=== PATIENT | male | born 1980 | race American Indian/Alaskan Native ===

== ENCOUNTER 2016-10-17 22:53 | Emergency (ER) | payer MEDICAID ==
[2016-10-17 23:58] LABS: Basophils % (Auto) 0.6 % (0.0-1.8); Eosinophils % (Auto) 3.2 % (0.0-4.3); Hematocrit 38.2 % (35.5-45.6); Hemoglobin 12.4 gm/dl (11.8-15.2); Mean Corpuscular HGB Conc 32 % (32-34); Mean Corpuscular Hemoglobin 27 pg (28-32); Mean Corpuscular Volume 83 fl (84-94); Platelet Count 246 K/mm3 (140-440); Red Blood Count 4.58 M/mm3 (3.65-5.03); Red Cell Distribution Width 14.5 % (13.2-15.2); White Blood Count 6.2 K/mm3 (4.5-11.0)
[2016-10-18 00:03] LABS: Urine Drugs of Abuse Note Disclamer
[2016-10-18 00:19] LABS: Bilirubin,Urine NEG (Negative); Blood,Urine NEG (Negative); Ketones,Urine TR mg/dL (Negative); Leukocyte Esterase,Urine SM (Negative); Mucus,Urine 3+ /HPF; Nitrite,Urine NEG (Negative); Urobilinogen,Urine < 2.0 mg/dL (<2.0)
[2016-10-18 02:19] LABS: Blood Urea Nitrogen 15 mg/dL (9-20); Calcium 9.5 mg/dL (8.4-10.2); Carbon Dioxide 20 mmol/L (22-30); Chloride 103.7 mmol/L (98-107); Glucose 106 mg/dL (75-100); Potassium 3.8 mmol/L (3.6-5.0); Sodium 145 mmol/L (137-145)
[2016-10-18 02:40] LABS: Anion Gap 25 mmol/L
--- NOTE | 2016-10-18 02:46 | Emergency Department Report ---
HPI - General Chief Complaint: Psych Time Seen by Provider: 10/18/16 01:11 - [facility] HPI: The patient is a 36-year-old male who presents for evaluation of mental health. The patient reports 1 day of constant and severe sadness and depression, associated with positive suicidal ideation. The patient states that his depression has been exacerbated with cocaine use. He denies again the panic commit suicide.The patient denies fever, headache, unexplained weight loss or weight gain, heat or cold intolerance, skin, hair, or nail changes, neuro deficits, homicidal ideations, or auditory or visual hallucinations. ED Past Medical Hx - Past Medical History Previous Medical History?: Yes Hx Asthma: Yes Additional medical history: drug and cocaine abuse - Social History Smoking Status: Unknown if ever smoked Substance Use Type: Cocaine, Marijuana ED Review of Systems ROS: Stated complaint: MEDICAL CLEARANCE Other details as noted in HPI Constitutional: denies: fever ENT: denies: throat or neck pain Respiratory: denies: cough, shortness of breath Cardiovascular: denies: chest pain Endocrine: denies unexplained weight loss or gain Gastrointestinal: denies: abdominal pain, nausea Genitourinary: denies: dysuria Musculoskeletal: denies: leg swelling Skin: denies: rash Neurological: denies: headache Hematological/Lymphatic: denies: easy bleeding or easy bruising Psych: reports sadness, SI Physical Exam - Physical Exam Vital Signs: Vital Signs 10/17/16 10/17/16 10/18/16 23:14 23:27 00:04 Temperature 97.8 F 97.8 F Pulse Rate 80 80 Respiratory 18 18 20 Rate Blood Pressure 120/75 Blood Pressure 120/75 [Right] O2 Sat by Pulse 100 98 98 Oximetry Physical Exam: General: well-nourished, well-developed, no acute distress Head: Normocephalic, atraumatic Eyes: normal sclera ENT: Mucous membranes are pale and dry Neck: No neck stiffness, no cervical adenopathy Respiratory: Breath sounds equal bilaterally, no wheezing, rales, or rhonchi Cardio: S1 and S2 present, no murmurs, rubs, gallops, capillary refill is delayed Abdomen: Normoactive bowel sounds, soft abdomen, no tenderness Chest WALL/Back: No tenderness to palpation of the chest wall, no CVA tenderness with percussion Musc: No pitting edema Skin: No rash Neuro: no facial drooping, normal speech Psych: Flat affect, depressed mood, poor insight, positive suicidal ideation ED Course Vital Signs 10/17/16 10/17/16 10/18/16 23:14 23:27 00:04 Temperature 97.8 F 97.8 F Pulse Rate 80 80 Respiratory 18 18 20 Rate Blood Pressure 120/75 Blood Pressure 120/75 [Right] O2 Sat by Pulse 100 98 98 Oximetry ED Medical Decision Making - Lab Data Result diagrams: 10/17/16 23:35 - Medical Decision Making The patient was seen and examined by myself. The patient is placed on a quality assurance monitor chassis and continuous pulse ox. On initial evaluation, the patient was found to be in no distress. Labs are obtained. IV access is established and the patient is given 1 L normal saline fluid bolus for treatment of dehydration. Lab results are grossly unremarkable. The patient is medically clear. Mental health is consulted. Mental health evaluates the patient and agrees that the patient is at risk of harm to self. A 1013 is completed. The patient will be admitted to a psychiatric facility once bed placement is obtained. Critical care attestation.: If time is entered above; I have spent that time in minutes in the direct care of this critically ill patient, excluding procedure time. ED Disposition Clinical Impression: Dehydration, Suicidal ideation Depressed Qualifiers: Depression Type: unspecified Qualified Code(s): F32.9 - Major depressive disorder, single episode, unspecified Disposition: DC/TX PSY HOSP/PSY UNIT Is pt being admited?: No Does the pt Need Aspirin: No Condition: Stable Instructions: Depression (ED) Referrals: PRIMARY CARE [Primary Care Provider] - 3-5 Days Time of Disposition: 02:40
[2016-10-18] MEDS ORDERED: NACL 0.9% 1000 ML 1,000 ML IV ONE (02:47)
[2016-10-18] MEDS ORDERED: ALUM-MAG HYDROX-SIMETH 200-200-20MG/5ML PO PRN (02:48)
[2016-10-18] MEDS ORDERED: MILK OF MAGNESIA PO PRN (02:48)
[2016-10-18] MEDS ORDERED: TYLENOL PO PRN (02:48)
[2016-10-18 15:07] VITALS: BP 115/73
--- NOTE | 2016-10-18 15:31 | Consultation ---
History of Present Illness - Reason for Consult Consult date: 10/18/16 Reason for consult: Mental Health Evaluation Requesting physician: KALI KRAMER - Chief Complaint Chief complaint: "I hear voices" - History of Present Psychiatric Illness The patient is a 36-year-old male who presents for evaluation of mental health. Today patient is calm and cooperative, but anxious about hearing voices telling him to kill himself. He was elusive with answering questions about how he feel mentally. He states that he receive the haldol shot from [facility] with the last injection "sometime last month." Patient had to be redirected during assessment , possibly responding to internal stimuli. He stated that he is suicidal with a plan to use a knife to "stab himself." He denies HI's, VH's, poor appetite or sleep disturbance. He rate his depression 9/10, 10 being the worse. He stated that he struggles with depression. He admits to using marijuana and cocaine. He states that he may drink a "beer or two." Positive for marijuana and cocaine. Medications and Allergies Allergies Allergy/AdvReac Type Severity Reaction Status Date / Time No Known Allergies Allergy Unverified 10/17/16 22:59 Past psychiatric history - Past Medical History Past Medical History: No medical history Past Surgical History: No surgical history - past Psychiatric treatment and history Psych: Bipolar, Depression, Schizophrenia psychiatric treatment history: Multiple inpatient psy services. Denies fam psy hx. - Social History Social history: Lives alone (high school dropout) Mental Status Exam - Vital signs Last Vital Signs Temp 97.3 F L 10/18/16 08:44 Pulse 65 10/18/16 15:06 Resp 18 10/18/16 15:06 BP 115/73 10/18/16 15:06 Pulse Ox 97 10/18/16 15:06 - Exam Narrative exam: ROS (+) psychosis, (+) depression MSE: Appearance: calm, cooperative Behavior: poor eye contact, irritable Speech: regular rate and tone Mood: "I am depressed" Affect: flat Thought Process: circumstantial Thought Content: denies HI's and VH's Motor Activity: ambulatory Cognition: A/Ox3 Insight: poor Judgment: poor Results Result Diagrams: 10/17/16 23:35 10/17/16 23:35 Abnormal lab results 10/17/16 10/17/16 10/17/16 Range/Units 23:35 23:35 23:48 MCV 83 L (84-94) fl MCH 27 L (28-32) pg Lymph % (Auto) 45.0 H (13.4-35.0) % Carbon Dioxide 20 L (22-30) mmol/L Glucose 106 H (75-100) mg/dL Ur Specific Gregory 1.035 H (1.003-1.030) Urine WBC (Auto) 36.0 H (0.0-6.0) /HPF All other labs normal. Assessment and Plan Assessment and plan: impression: MDD with psychotic features/Substance Use DO. The patient is a 36- year-old male who presents for evaluation of mental health. Today patient is calm and cooperative, but anxious about hearing voices telling him to kill himself. He was elusive with answering questions about how he feel mentally. He states that he receive the haldol injection from [place] with the last injection "sometime last month." Patient had to be redirected during assessment, possibly responding to internal stimuli. He denies HI's and VH's. Positive for cocaine and marijuana. DD: R/O Bipolar, Schizoaffective DO Recommendation/Plan: Continue 1013 with transfer to [facility]. Report has been called by ANTON.
== END 2016-10-18 15:07 ==
LOC: EEVIPCON 22:53 → ED 22:53
DX: R45.851 Suicidal ideations (principal); F32.9 Major depressive disorder, single episode, unspecified; E86.0 Dehydration; J45.909 Unspecified asthma, uncomplicated; F14.10 Cocaine abuse, uncomplicated; F12.10 Cannabis abuse, uncomplicated
CPT/HCPCS: 36415; 80048; 80307; 81001; 85025; 96360; 96361; 99285; J7030